=== PATIENT | male | born 1970 | race Caucasian/White ===

== ENCOUNTER 2023-04-13 09:04 | Outpatient (CLI) | payer OTHER ==
--- NOTE | 2023-04-13 10:24 | SLEEP CARE CONSULTATION ---
Information from patient questionnaire entered by Jaky Chand. I have reviewed and concur with the information entered by Jaky Chand. This document represents the service I personally performed and the decisions made by me, Domingo Henry MD, [facility]. History of Present Illness Service Date and Time: 04/13/2023 0904 Reason for Visit: New patient Chief Complaint: reports: Insomnia, Unrefreshed sleep, Snoring, Excessive daytime sleepiness, Observed pauses in breathing, Fatigue, Frequent awakenings at night Date of Onset: 15-20YRS Usual bedtime: 10PM Time it takes to fall asleep: 15MIN-HRS Snores at night: Yes Observed to quit breathing while asleep: Yes Sleeps alone due to snoring: Yes Number of times waking at night: 3-5 Reasons for waking at night: reports: Snoring, Gasping for air, Bathroom Toss, Turn, or Twitch while sleeping: Yes Recalls having dreams: Yes Usually gets out of bed at: 330-5AM Feels refreshed in the morning: No Morning headache: Yes Sleepy or fatigued during the day: Yes Ever fallen asleep while driving: Yes Takes day naps: Yes Dreams during day naps: No Prior sleep studies: No Additional HPI information: I had the pleasure of seeing Mr. Casillas today regarding the possibility of him having a sleep disorder. As you know, he is a 52-year-old gentleman who complains of insomnia, loud snores, observed apneas, unrefreshed sleep, and excessive daytime sleepiness for the past 15 20 years. The patient tells me that he normally goes to bed around 9 - 10 pm, and it takes him approximately 15 minutes to fall asleep. He has been told that he snores loudly and irregularly at night. He has also been observed to stop breathing in his sleep. His has to sleep in a separate room. He can recall waking up on the average of 3 - 5 times during the night. Most of the time he wakes up because of having to use the bathroom. He has awakened occasionally because of his own snoring, choking, and having to gasp for air. There is not a lot of tossing and turning in his sleep. He has somniloquy (sleep talking) but not somnambulism (sleep walking). Generally, he can recall having dreams. In the morning he usually gets up out of the bed around 3:30 - 5 a.m. not feeling refreshed nor rested. He usually has a morning headache that goes away by the time he has his second coffee. During the day he complains of feeling very sleepy and fatigued. His score on [place] Sleepiness Scale is 20 out of 24. He has fallen asleep while driving and has gone out of the [place]. He usually takes naps during the day. He reports having impaired concentration during the day. - Parasomnia Symptoms Ever been unable to move upon waking from sleep: Yes Walks in sleep: No Talks in sleep: Yes Ever acted out dreams in sleep: Yes Ever felt weak in the knees when startled or emotional: Yes Bothered by creepy, crawly, restless sensations in legs: Yes Problems with memory or concentration: Yes Subjective Initial [place] Sleepiness Scale score: 20 (04/02/23) Past Medical History Past Medical History: reports: Hypertension, Claustrophobia, Arthritis, Anemia, Anxiety, Depression, Mood disorder, GERD, Attention deficit Social History The patient's occupation is a AM. Patient is Single and lives in [place]. Have you smoked in the past 12 months: No Alcohol use: Yes Alcohol amount and frequency: 2-3WK Caffeine use: Yes Caffeine amount and frequency: 2 DAILY Family History Family history of sleep disordered breathing: Yes Family Hx Sleep Apnea: Father: Snoring, Sleep apnea - Treated Allergies and Home Medications Known drug allergies: No Drug allergies reviewed: Yes Home medication list reviewed: Yes Review of Systems Weight gain over past 5 years: 25 Cardiovascular: reports: high blood pressure, chest pain, irregular heart rate or pulse Respiratory: reports: shortness of breath Gastrointestinal: reports: heartburn, difficulty swallowing Urinary: reports: incontinence, frequency, urgency Neurological: reports: headaches, head trauma, gait or balance problems Psychiatric: reports: Attention Deficit Hyperactivity, anxiety, depression, mood disorder, claustrophobia Ear/Nose/Throat: reports: sinus problems, nose bleeds Endocrine: reports: sluggishness, increased urination, unexplained weakness Musculoskeletal: reports: joint pain, neck pain, back pain, muscle pain or cramping, mobility problems Immunologic: reports: sneezing Physical Exam Vital signs obtained and entered by: JAKY Brennan MA Blood Pressure: 120/72 (LEFT ARM) Cuff size: regular Heart Rate: 66 O2 Saturation: 97 Height: 5 ft 10 in Weight: 214 lb 3.2 oz Body Mass Index: 30.7 BMI Classification: Obese Neck circumference: 17 Mood/affect: Normal HEENT: No craniofacial malformation Nostrils: patent to airflow Turbinates: normal Septum: midline Mouth and throat: narrow oropharynx Soft palate: long Hard palate: normal Uvula: normal Uvula visualization: 25% Mallampati Class III Tongue: normal in size Tonsils: small Chin and jaw: normal size and position Neck: normal w/o lymphadenopathy or thyromegaly Heart: regular rate and rhythm Lungs: clear bilaterally Extremities: no edema or clubbing Neurologic: intact Impression and Plan IMPRESSION: 1. Obstructive Sleep Apnea-Hypopnea Syndrome, as suggested by history of loud and irregular snoring, observed cessation of breath while asleep, frequent awakenings during the night, nocturnal choking, unrefreshed sleep, morning headache, cognitive impairment, and daytime hypersomnolence. Narrow oropharynx and obesity are common predisposing factors for obstructive sleep apnea-hypopnea syndrome. Untreated obstructive sleep apnea can also cause hypertension. I recommend proceeding to polysomnography to confirm the diagnosis and to assess severity. If he has significant sleep disordered breathing, a manual CPAP titration study will also be performed to find the optimal treatment pressure. I informed the patient of what the sleep studies involve and after some discussion, he would like to first have a home sleep apnea test (HSAT). If negative, a follow up in-laboratory polysomnography will be ordered. Plan: 1. Schedule a home sleep apnea test (HSAT). 2. Avoid long distance driving or when feeling sleepy. 3. Avoid alcohol, sedatives and muscle relaxants around bedtime. 4. Attempt to lose weight. Follow up with Sleep Care in: 1-2 months Plan: HSAT Visit Type: In Office Time Spent with Patient (minutes): 15 Provider Statement: I spent 100% of the Face to Face Visit with the patient with greater than 50% spent counseling the patient and coordination of care.
[2023-04-13 10:31] VITALS: BP 120/72; O2SAT 97
== END 2023-04-13 09:05 | disposition home or self-care (01) ==
LOC: SC 09:04
PROVIDERS: ATTEND Internal Medicine Pulmonary Disease
DX: R06.83 Snoring (principal); G47.8 Other sleep disorders; R06.81 Apnea, not elsewhere classified; G47.10 Hypersomnia, unspecified; I10 Essential (primary) hypertension; F32.A Depression, unspecified; E66.9 Obesity, unspecified; Z68.30 Body mass index [BMI] 30.0-30.9, adult
CPT/HCPCS: 99202; 99212

== ENCOUNTER 2023-05-05 12:28 | Outpatient (CLI) | payer OTHER | END 2023-05-05 12:29 | disposition home or self-care (01) | LOC: SC 12:28 | PROVIDERS: ATTEND Internal Medicine Pulmonary Disease | DX: G47.33 Obstructive sleep apnea (adult) (pediatric) (principal); R09.02 Hypoxemia | CPT/HCPCS: 95806 ==

== ENCOUNTER 2023-05-13 14:45 | Outpatient (CLI) | payer OTHER ==
--- NOTE | 2023-05-13 12:45 | SLEEP CARE CONSULTATION ---
Information from patient questionnaire entered by Clay Chand. I have reviewed and concur with the information entered by Clay Chand. This document represents the service I personally performed and the decisions made by me, Domingo Henry MD, [facility]. History of Present Illness Service Date and Time: 05/13/2023 1040 Initial [place] Sleepiness Scale score: 20 (04/02/23) Current [place] Sleepiness Scale score: 17 (05/13/23) Additional HPI information: Mr. Casillas [facility] for follow up of the sleep study he had on 05/05/2023. He was at his work site. The polysomnography showed that moderate obstructive sleep apnea-hypopnea =, with an AHI of 23.0/hr and roxy SaO2 of 80%. During the study, the patient had 18 apneas (18 obstructive, 0 central, 0 mixed) and 151 hypopneas. The longest episode lasted 65.0 seconds. The respiratory events occurred more frequently during supine sleep (supine AHI was 44.4 and non-supine, 5.46). Hypoxemia was mild, with the lowest oxygen saturation of 80 % and 59.3 minutes with SaO2 under 90%. Baseline oxygen saturation was normal (Average oxygen saturation was 92%). The patient was informed of these findings. I explained to him the pathophysiology behind obstructive sleep apnea. We then spent quite a bit of time discussing different treatment options. For mild obstructive sleep apnea, surgery and oral appliance are alternatives to nasal CPAP therapy but in moderate or severe cases, nasal CPAP is the most effective and reliable treatment. Weight loss in an obese individual is strongly recommended. After some discussion, he opted to go with the nasal CPAP therapy. I explained to him how CPAP machine works and what to expect when using the machine. He is encouraged to use CPAP every night especially in the first 2 to 3 nights in order to get used to it. He should call his CPAP supplier or me to discuss any mechanical problem that may occur. If he snores or feels like he is not getting enough air from the machine, he should notify me and I will increase the pressure. Sleep Study - Results Type of Sleep Study: Home sleep study (COMPLETED 05/05/23) Prior sleep studies: No Allergies and Home Medications Drug allergies reviewed: Yes Home medication list reviewed: Yes Review of Systems Review of systems same as previous: Yes Physical Exam Vital signs obtained and entered by: CLAY Brennan MA Height: 5 ft 10 in (PER PT) Weight: 210 lb (PER PT ) Body Mass Index: 30.1 BMI Classification: Obese Impression and Plan IMPRESSION: 1. Obstructive Sleep Apnea-Hypopnea Syndrome, moderate, associated with mild hypoxemia. Possibly, this is the cause of the patients symptoms of unrefreshed sleep, and fatigue. The patient also has hypertension as a comorbidity. As mentioned above, the patient will be started on an autoCPAP set at 5 - 15 cmH2O. Depending on his response and compliance he may be brought back for an overnight CPAP titration study. PLAN: 1. Prescription made for an autoCPAP, heated humidifier, and related supplies through [facility]. 2. Attempt to lose weight and avoid alcohol consumption near bedtime. 3. Return for follow up after one month of using the CPAP. Prescriptions: Auto CPAP Follow up with Sleep Care in: 1-2 months Visit Type: Telehealth Video Video Type: Doximity Patient Location: work site Location of Provider: Office Patient agrees and consents to this telehealth visit type: Yes Patient agrees to have their insurance billed: Yes Provider Statement: I spent 100% of the Telehealth Video Call with the patient with greater than 50% spent counseling the patient and coordination of care.
== END 2023-05-13 14:46 | disposition home or self-care (01) ==
LOC: SC 14:45
PROVIDERS: ATTEND Internal Medicine Pulmonary Disease
DX: G47.33 Obstructive sleep apnea (adult) (pediatric) (principal); E66.9 Obesity, unspecified; Z68.30 Body mass index [BMI] 30.0-30.9, adult